=== PATIENT | male | born 1995 | race Caucasian/White ===

== ENCOUNTER 2017-05-11 01:53 | Emergency (ER) | payer BC ==
[~2017-05-11] VITALS: Ht 162.6 cm; Wt 70.3 kg
[~2017-05-11 01:53] MED LIST: AMBIEN10 MG PO; DOXEPIN HCL25 MG PO; GABAPENTIN100 MG PO; HYDROXYZINE HCL25 MG PO; LATUDA80 MG PO; MELATONIN3 MG PO; NORCO 10-325 T1 EACH PO; OLANZAPINE5 MG PO; OXYCONTIN10 MG PO; PRISTIQ ER50 MG PO; SAPHRIS10 MG SL; TOPIRAMATE100 MG PO; TRAZODONE HCL50 MG; ULTRAM 50MG50 MG PO; VALIUM10 MG PO; VYVANSE40 MG PO; XANAX0.25 MG PO
[2017-05-11 02:34] LABS: BILIRUBIN,URINE NEGATIVE (NEGATIVE); CLARITY,URINE CLEAR (CLEAR); COLOR,URINE YELLOW (YELLOW); KETONES,URINE NEGATIVE (NEGATIVE); LEUKOCYTE ESTERASE ,URINE NEGATIVE (NEGATIVE); NITRITE,URINE NEGATIVE (NEGATIVE); PROTEIN,URINE DIPSTICK NEGATIVE (NEGATIVE); URINE UROBILINOGEN 0.2 mg/dL (0.2 - 1)
[2017-05-11 02:42] LABS: BACTERIA,URINE RARE /HPF; EPITHELIAL CELLS,URINE RARE /LPF; RBC,URINE 0-5 /HPF (0-5)
[2017-05-11 02:46] VITALS: BP 116/72
--- NOTE | 2017-05-12 07:42 | Diagnostic Imaging Report ---
PROCEDURE:ABDOMEN ACUTE SERIES W/PA CXR COMPARISON:None. INDICATIONS:LOWER ABDOMINAL PAIN FINDINGS: CHEST: Normal cardiomediastinal silhouette. No focal consolidation or parenchymal mass. No pleural effusion or pneumothorax. BOWEL PATTERN: No air-fluid levels. No pneumoperitoneum. SOFT TISSUES: No abnormal calcifications. BONES: No acute displaced fracture. CONCLUSION: 1. No acute thoracic abnormality. 2. No evidence of bowel obstruction. Dictated by: Dante Colón M.D. on 05/12/2017 at 7:42 Electronically approved by: Dante Colón M.D. on 05/12/2017 at 7:42
== END 2017-05-11 02:51 | disposition home or self-care (01) ==
LOC: ER 01:56
DX: R10.31 Right lower quadrant pain (principal); R10.32 Left lower quadrant pain; K59.00 Constipation, unspecified; G89.29 Other chronic pain; F31.9 Bipolar disorder, unspecified
CPT/HCPCS: 74022; 81001; 99283

== ENCOUNTER 2017-06-21 15:25 | Emergency (ER) | payer BC ==
[~2017-06-21] VITALS: Ht 162.6 cm; Wt 70.3 kg
--- OUTSIDE RECORDS SUMMARY | 2017-06-21 15:28 | XMS REPORT ---
Author Author [facility] Address Unknown Phone Unavailable Care Team Providers Care Rubber Covering Machine Operator Name Role Phone MARIA EUGENIA FAJARDO Unavailable Unavailable Problems This patient has no known problems. Allergies, Adverse Reactions, Alerts This patient has no known allergies or adverse reactions. Medications This patient has no known medications. Results Test Description Test Time Test Comments Text Results Atomic Results Result Comments ABDOMEN ACUTE SERIES W/PA CXR [place] [address] Patient Name: RICKI FLEMING MR #: [id number] : 1995 Age/Sex: 22/M Req #: [id number] Adm Physician: Ordered by: MARIA EUGENIA FAJARDO MD Report #: [id number] Location: ER Room/Bed: ___ Procedure: [id number] DX/ABDOMEN ACUTE SERIES W/PA CXR Exam Date: Exam Time: 0210 REPORT STATUS: Signed PROCEDURE: ABDOMEN ACUTE SERIES W/PA CXR COMPARISON: None. INDICATIONS: LOWER ABDOMINAL PAIN FINDINGS: CHEST: Normal cardiomediastinal silhouette. No focal consolidation or parenchymal mass. No pleural effusion or pneumothorax. BOWEL PATTERN: No air-fluid levels. No pneumoperitoneum. SOFT TISSUES: No abnormal calcifications. BONES: No acute displaced fracture. CONCLUSION: 1. No acute thoracic abnormality. 2. No evidence of bowel obstruction. Dictated by: Faby Clemens M.D. on 05/12/2017 at 7:42 Electronically approved by: Faby Clemens M.D. on 05/12/2017 at 7:42 Dictated By: FABY CLEMENS MD 1 Transcribed By: BENY on 05/12/17741 COPY TO: MARIA EUGENIA FAJARDO MD
--- OUTSIDE RECORDS SUMMARY | 2017-06-21 15:28 | XMS REPORT ---
Author Author Admin, [facility] Address Unknown Phone Unavailable Allergies, Adverse Reactions, Alerts Allergy Name Reaction Description Start Date Severity Status Provider No Known Allergies Jarochomelecio Justinis TRANSPORTATION ATTENDANT Conditions or Problems Problem Name Problem Code Onset Date Status Entry Date Provider Comment Standard Description Annotate BMI 33.0-33.9 Active Michael RODRIGUEZ-C Body Mass Index 33.0-33.9, adult Obesity Active Michael RODRIGUEZ-C Obesity, unspecified Nicotine dependence, chewing tobacco, with other nicotine-induced disorders 292.89 Active Aravind Bhatti [employer] REPA[employer]ER Other specified drug-induced mental disorders Prediabetes 790.29 Active Aravind Bhatti [employer] REPAIRER Other abnormal glucose Bipolar disorder 296.7 Active Aravind Bhatti [employer] REPAIRER Bipolar I disorder, most recent episode (or current) unspecified Gender Dysphoria 309.89 Active Aravind Bhatti [employer] REPAIRER Other specified adjustment reactions Herniated lumbar disc 722.10 Active Aravind Guillenarberg [employer] REPAIRER Displacement of lumbar intervertebral disc without myelopathy Hormone imbalance 259.9 Active Aravind Bhatti [employer] REPAIRER Unspecified endocrine disorder Chewing difficulty ICD-783.3 Inactive Aravind STOVERP Chewing difficulty 783.3 Resolved Aravind STOVERP Feeding difficulties and mismanagement Medication List Medication Instructions Start Date Stop Date Generic Name NDC Status Provider Patient Instruction PROPRANOLOL HCL 10 MG ORAL TABLET 1 by mouth Every Day PROPRANOLOL HCL 31325923338 Active Michael Lars O'Donavan [employer] REPAIRER-C Active BIOTIN 1000 MCG ORAL TABLET 1 tab By Mouth Every Day BIOTIN 24829241234 Active Michael Sharif [employer]MENT PLANT REPAIRER-C Active DOXEPIN HCL CAPSULE DOXEPIN HCL CAPS 40999092692 Active Michael Sharif [employer]ANT REPAIRER-C Active GABAPENTIN CAPSULE GABAPENTIN CAPS 70435939711 Active Michael Sharif [employer] REPAIRER-C Active IBUPROFEN CAPSULE IBUPROFEN CAPS 23653660487 Active Michael Sharif [employer]MENT PLANT REPAIRER-C Active OLANZAPINE TABLET OLANZAPINE TABS 12336435613 Active Michael Sharif [employer]MENT PLANT REPAIRER-C Active PROPRANOLOL HCL TABLET PROPRANOLOL HCL TABS 39781670096 Active Michael Sharif [employer]MENT PLANT REPAIRER-C Active SERTRALINE HCL TABLET SERTRALINE HCL TABS 68175041478 Active Michael Sharif [employer]ANT REPAIRER-C Active BD SYRINGE/NEEDLE 25G X 5/8" 1 ML Inject 0.25mL testosterone SC weekly 12/10 SYRINGE/NEEDLE (DISP) 20180184793 Active Aravind Bhatti [employer] REPAIRER Active TESTOSTERONE CYPIONATE 200 MG/ML INTRAMUSCULAR SOLUTION 0.5ml (100mg) injected subcu every 7 days TESTOSTERONE CYPIONATE 12768903428 Active Michael Sharif [employer]ANT REPAIRER-C Active AMBIEN 10 MG ORAL TABLET 1 by mouth nightly at bedtime as needed for insomnia AMBIEN 10 MG ORAL TABLET 262713 ZOLPIDEM TARTRATE Inactive HYDROCODONE-ACETAMINOPHEN 10-300 MG ORAL TABLET HYDROCODONE-ACETAMINOPHEN 10-300 MG ORAL TABLET 842925 HYDROCODONE- ACETAMINOPHEN Inactive LATUDA 80 MG ORAL TABLET one daily LATUDA 80 MG ORAL TABLET LURASIDONE HCL Inactive OXYCONTIN 30 MG ORAL TABLET ER 12 HOUR ABUSE-DETERRENT OXYCONTIN 30 MG ORAL TABLET ER 12 HOUR ABUSE-DETERRENT OXYCODONE HCL Inactive PRISTIQ 50 MG ORAL TABLET EXTENDED RELEASE 24 HOUR PRISTIQ 50 MG ORAL TABLET EXTENDED RELEASE 24 HOUR DESVENLAFAXINE SUCCINATE Inactive VALIUM 10 MG ORAL TABLET Three Times a Day VALIUM 10 MG ORAL TABLET 540606 DIAZEPAM Inactive VYVANSE 40 MG ORAL CAPSULE Twice a Day VYVANSE 40 MG ORAL CAPSULE LISDEXAMFETAMINE DIMESYLATE Inactive AMBIEN 10 MG ORAL TABLET 1 by mouth nightly at bedtime as needed for insomnia ZOLPIDEM TARTRATE 57750816591 No Longer Active Michael Sharif [employer] REPAIRER-C Active HYDROCODONE-ACETAMINOPHEN 10-300 MG ORAL TABLET HYDROCODONE-ACETAMINOPHEN 39208287865 No Longer Active Aravind Bhatti [facility] Active LATUDA 80 MG ORAL TABLET one daily LURASIDONE HCL 92331259229 No Longer Active Aravind STOVERP Active OXYCONTIN 30 MG ORAL TABLET ER 12 HOUR ABUSE-DETERRENT OXYCODONE HCL 89936207720 No Longer Active Aravind Bhatti [facility] Active PRISTIQ 50 MG ORAL TABLET EXTENDED RELEASE 24 HOUR DESVENLAFAXINE SUCCINATE 97948233737 No Longer Active Aravind STOVERP Active VALIUM 10 MG ORAL TABLET Three Times a Day DIAZEPAM 50954542322 No Longer Active Michael STOVERP-C Active VYVANSE 40 MG ORAL CAPSULE Twice a Day LISDEXAMFETAMINE DIMESYLATE 91176293482 No Longer Active Michael STOVERP-C Active Advance Directives Directive Description Start Date DR. CHRISTIANO SAENZ--PSYCHIATRIST SINCE AGE 13 NEIL FLORES MD IS PAIN MANAGEMENT Vital Signs Date Name Value Unit Range Description blood pressure, diastolic 80 mm[Hg] BP castelan blood pressure, systolic 147 mm[Hg] BP sys height E&M 64 [in_us] Bdy height pulse rate E&M 111 /min Heart rate temperature E&M 96.8 [degF] Body temperature weight E&M 200.38 [lb_av] Weight Measured blood pressure, diastolic 86 mm[Hg] BP castelan blood pressure, systolic 142 mm[Hg] BP sys height E&M 64 [in_us] Bdy height pulse rate E&M 75 /min Heart rate temperature E&M 97.6 [degF] Body temperature weight E&M 197.38 [lb_av] Weight Measured blood pressure, diastolic 99 mm[Hg] BP castelan blood pressure, systolic 151 mm[Hg] BP sys height E&M 64 [in_us] Bdy height pulse rate E&M 112 /min Heart rate temperature E&M 98.6 [degF] Body temperature weight E&M 195.50 [lb_av] Weight Measured Diagnostic Results Date Name Value Unit Range Description Lab Report: CBC With Differential/Platelet, Comp. Metabolic Panel (14), ... - Serology hepatitis C antibody, serum <0.1 0.0-0.9 Lab Report: CBC With Differential/Platelet, Comp. Metabolic Panel (14), ... - Hematology lymphocyte count, blood, automated 3.8 X10E3/UL 10*3/mm3 0.7- 3.1 Lab Report: Comp. Metabolic Panel (14), CBC, Platelet, No Differential, ... - Chemistry urea nitrogen, blood 8 mg/dL 6-20 creatinine, serum 0.87 mg/dL 0.57-1.00 chloride, serum 100 mmol/L 96-106 Lab Report: Comp. Metabolic Panel (14), CBC, Platelet, No Differential, ... - Hematology mean corpuscular volume, RBC 85 fL 79-97 Lab Report: Comp. Metabolic Panel (14), CBC, Platelet, No Differential, ... - Chemistry triglyceride, serum, fasting 131 mg/dL 0-149 Lab Report: Comp. Metabolic Panel (14), CBC, Platelet, No Differential, ... - Hematology erythrocyte (RBC) count 4.94 X10E6/UL 10*6/mm3 3.77-5.28 Lab Report: Comp. Metabolic Panel (14), CBC, Platelet, No Differential, ... - Chemistry Estimated Glomerular Filtration Rate (calc) 95 mL/min/1.73m2 > 59 Lab Report: Comp. Metabolic Panel (14), CBC, Platelet, No Differential, ... - Hematology platelet count 349 X10E3/UL 10*3/mm3 223-408 0447/12/18 red blood cell distribution width 13.8 % 12.3-15.4 Lab Report: Comp. Metabolic Panel (14), CBC, Platelet, No Differential, ... - Chemistry protein, total, serum 7.2 g/dL 6.0-8.5 HDL cholesterol, serum 35 mg/dL >39 albumin/globulin ratio, serum 1.6 1.2-2.2 Lab Report: CBC With Differential/Platelet, Comp. Metabolic Panel (14), ... - Hematology eosinophils as percent of blood leukocytes 1 % Lab Report: CBC With Differential/Platelet, Comp. Metabolic Panel (14), ... - Chemistry Absolute Neutrophils 3.3 X10E3/UL 10*3/uL 1.4-7.0 Lab Report: CBC With Differential/Platelet, Comp. Metabolic Panel (14), ... - Hematology basophil count, absolute 0.0 x10E3/uL 0.0-0.2 Lab Report: CBC With Differential/Platelet, Comp. Metabolic Panel (14), ... - Chemistry hepatitis B surface antigen Negative Negative Lab Report: Comp. Metabolic Panel (14), CBC, Platelet, No Differential, ... - Chemistry alanine aminotransferase (SGPT), serum 16 U/L 0-32 LDL cholesterol, serum 97 mg/dL 0-99 Lab Report: CBC With Differential/Platelet, Comp. Metabolic Panel (14), ... - Hematology monocytes as percent of blood leukocytes 8 % Lab Report: Comp. Metabolic Panel (14), CBC, Platelet, No Differential, ... - Chemistry cholesterol, serum 158 mg/dL 100-199 Lab Report: Comp. Metabolic Panel (14), CBC, Platelet, No Differential, ... - Hematology mean corpuscular hemoglobin concentration, RBC 33.8 G/DL % 31.5- 35.7 hemoglobin, blood 14.2 g/dL 11.1-15.9 leukocyte count, blood 10.8 X10E3/UL 10*3/mm3 3.4-10.8 hematocrit, blood 42.0 % 34.0-46.6 Lab Report: Comp. Metabolic Panel (14), CBC, Platelet, No Differential, ... - Chemistry globulin, serum 2.8 1.5-4.5 Lab Report: CBC With Differential/Platelet, Comp. Metabolic Panel (14), ... - Chemistry vitamin D 25-hydroxy, serum 28.5 ng/mL 30.0-100.0 Lab Report: Comp. Metabolic Panel (14), CBC, Platelet, No Differential, ... - Chemistry testosterone, serum, free 22.9 pg/mL 0.0-4.2 Lab Report: CBC With Differential/Platelet, Comp. Metabolic Panel (14), ... - Chemistry thyroid stimulating hormone, serum 1.040 u[iU]/mL 0.450-4.500 Lab Report: Comp. Metabolic Panel (14), CBC, Platelet, No Differential, ... - Chemistry albumin, serum 4.4 g/dL 3.5-5.5 very low density lipoproteins 26 mg/dL 5-40 Lab Report: CBC With Differential/Platelet, Comp. Metabolic Panel (14), ... - Hematology basophils as percent of blood leukocytes 0 % Lab Report: Comp. Metabolic Panel (14), CBC, Platelet, No Differential, ... - Chemistry calcium, serum 9.6 mg/dL 8.7-10.2 Lab Report: CBC With Differential/Platelet, Comp. Metabolic Panel (14), ... - Hematology monocyte count, blood, automated 0.6 X10E3/UL 10*3/uL 0.1-0.9 Lab Report: Comp. Metabolic Panel (14), CBC, Platelet, No Differential, ... - Chemistry urea nitrogen/creatinine ratio, serum 9 9-23 Lab Report: CBC With Differential/Platelet, Comp. Metabolic Panel (14), ... - Chemistry immature granulocytes, percentage of total cells, blood 0 % Lab Report: Comp. Metabolic Panel (14), CBC, Platelet, No Differential, ... - Genetics/fertility eGFR if 109 mL/min/1.73m2 >59 Lab Report: CBC With Differential/Platelet, Comp. Metabolic Panel (14), ... - Hematology lymphocytes as percent of blood leukocytes 49 % Lab Report: Comp. Metabolic Panel (14), CBC, Platelet, No Differential, ... - Chemistry carbon dioxide, venous blood 26 mmol/L 18-29 Lab Report: CBC With Differential/Platelet, Comp. Metabolic Panel (14), ... - Serology rapid plasma reagin antibody, serum Non Reactive Non Reactive Lab Report: Comp. Metabolic Panel (14), CBC, Platelet, No Differential, ... - Chemistry sodium, serum 140 mmol/L 134-144 Lab Report: CBC With Differential/Platelet, Comp. Metabolic Panel (14), ... - Chemistry hemoglobin A1C, blood, as % of total hemoglobin 5.8 % 4.8-5.6 Lab Report: Comp. Metabolic Panel (14), CBC, Platelet, No Differential, ... - Chemistry alkaline phosphatase, serum 99 U/L 39-117 testosterone, total 615 ng/dL 8-48 Lab Report: CBC With Differential/Platelet, Comp. Metabolic Panel (14), ... - Hematology Eosinophil Absolute Count 0.1 X10E3/UL 10*3/uL 0.0-0.4 Lab Report: Comp. Metabolic Panel (14), CBC, Platelet, No Differential, ... - Hematology mean corpuscular hemoglobin, RBC 28.7 pg 26.6-33.0 Lab Report: Comp. Metabolic Panel (14), CBC, Platelet, No Differential, ... - Chemistry bilirubin, serum, total <0.2 mg/dL mg/dL 0.0-1.2 Lab Report: CBC With Differential/Platelet, Comp. Metabolic Panel (14), ... - Hematology neutrophils as percent of blood leukocytes 42 % Lab Report: Comp. Metabolic Panel (14), CBC, Platelet, No Differential, ... - Chemistry blood glucose, random 92 mg/dL 65-99 potassium, serum 4.7 mmol/L 3.5-5.2 aspartate aminotransferase (SGOT), serum 17 U/L 0-40 Encounters Date Encounter Provider Code Facility 17:12:11 DEMURRAGE AGENT Est Patient Exp Problem - 16771 Michael Sousa O'Donavan WATER TREATMENT PLANT REPAIRER-C CPT-49531 [facility] 14:21:59 DEMURRAGE AGENT Est Patient Exp Problem - 81183 Mcihael Lars O'Donavan WATER TREATMENT PLANT REPAIRER-C CPT-67901 [facility] 15:31:56 DEMURRAGE AGENT New Patient Detailed - 78259 Michael Sousa O'Donavan WATER TREATMENT PLANT REPAIRER- C CPT-06524 [facility] 12:02:02 DEMURRAGE AGENT Est Patient Problem Focus - 23141 Aravind Guillenarberg WATER TREATMENT PLANT REPAIRER CPT-48644 [facility] 17:04:19 CDT Est Patient Problem Focus - 01599 Aravind Guillenarberg WATER TREATMENT PLANT REPAIRER CPT-80109 [facility] 16:54:12 CDT New Patient Comprehensive - 61419 Aravind Guillenarberg WATER TREATMENT PLANT REPAIRER CPT-00352 [facility] Adult [facility] Procedures Code Procedure Name Date Entry Date Standard Description CPT-66759 Handling of specimen for transfer 16:54:15 CDT CPT-27605 Venipuncture 16:54:15 CDT
--- OUTSIDE RECORDS SUMMARY | 2017-06-21 15:28 | XMS REPORT | Continuity of Care Document ---
Author Author [facility] Organization [facility] Address [address] [place] [address] Phone Unavailable Care Team Providers Care Town Justice Name Role Phone TERESA RAMOS DO PCP Insurance Providers Guarantor Rojelio Fleming Address [address] [place] [address] [place] [address] Payer [facility] Ppo Policy Number [id number] Subscriber's Name Rojelio Fleming Relationship 33 Father Group Number [id number] Group Name [employer] Effective Date 15 Advance Directives Directive Response Recorded Date/Time Does the patient have an advance directive? No 06/02/09 10:07pm If yes, is advance directive on file with [facility]? No 06/02/09 10:07pm If not on file with [facility] will patient provide a copy? Yes 09/12/15 8:27am Do you have a Directive to Physician? No 05/11/17 2:19am Do you have a Medical Power of Tank Cleaning Supervisor? No 05/11/17 2:19am Do you have an out of hospital Do Not Resuscitate Order? No 05/11/17 2:19am Do you have any special needs we should be aware of? No 05/11/17 2:19am Do you have a support person here with you today? Yes 05/11/17 2:19am Did patient receive Notice of Privacy Practices? Yes 05/11/17 2:19am Did patient receive patient rights and responsibilities? Yes 05/11/17 2:19am Problems Medical Problem Onset Date Status Anticholinergic drug overdose 08/08/2014 Acute Chronic back pain Unknown Acute Diphenhydramine overdose 08/08/2014 Acute Medications Current Home Medications Medication Dose Units Route Directions Days Qty Instructions Start Date Desvenlafaxine Succinate (Pristiq Er) 50 Mg Tab.er.24h 50 Mg Oral Daily 30 Tab Doxepin Hcl 25 Mg Capsule 150 Mg Oral Bedtime 30 Cap Gabapentin 100 Mg Capsule 100 Mg Oral Twice A Day Hydroxyzine Hcl 25 Mg Tablet 75 Mg Oral Twice A Day 30 Tab Melatonin 3 Mg Tablet 5 Mg Oral Bedtime Olanzapine 5 Mg Tablet 15 Mg Oral Daily 30 Tab Topiramate 100 Mg Tablet 150 Mg Oral Twice A Day 30 Tab Past Home Medications Medication Directions Ordered Status Alprazolam (Xanax) 0.25 Mg Tablet, Unknown Dose Oral Daily Discontinued Asenapine Maleate (Saphris) 10 Mg Tab.subl, Unknown Dose Sublingual Daily Discontinued Diazepam (Valium) 10 Mg Tablet, 10 Mg Oral Three Times A Day Discontinued Hydrocodone Bit/Acetaminophen ([place] 10-325 Tablet) 1 Each Tablet, 1 Tab Oral Three Times A Day Discontinued Lisdexamfetamine Dimesylate (Vyvanse) 40 Mg Capsule, 80 Mg Oral Daily Discontinued Lurasidone Hcl (Latuda) 80 Mg Tablet, 80 Mg Oral Daily Discontinued Oxycodone Hcl (Oxycontin) 10 Mg Tab.er.12h, 30 Mg Oral Twice A Day Discontinued Tramadol Hcl (Ultram 50MG*) 50 Mg Tab, 50 Mg Oral As Needed as needed for Pain Discontinued Trazodone Hcl 50 Mg Tablet, Unknown Dose Route Daily Discontinued Zolpidem Tartrate (Ambien) 10 Mg Tablet, 10 Mg Oral Bedtime Discontinued Social History Smoking Status Start Date Stop Date Current some day smoker Hospital Discharge Instructions No hospital discharge instruction information available. Plan of Care Discharge Date 05/11/17 2:51am Disposition HOME, SELF-CARE Condition at Discharge Stable Instructions/Education Provided Constipation - Adult Forms Provided Work/School Excuse Prescriptions See Medication Section Additional Instructions/Education DRINK PLENTY OF FLUIDS Functional Status No functional status information available. Allergies, Adverse Reactions, Alerts No known allergies. Immunizations No immunization information available. Vital Signs Acute Vital Signs Vital Response Date/Time Temperature (Fahrenheit) 97.8 degrees F (97.6 - 99.5) 05/11/2017 2:46am Pulse Pulse Rate (adult) 77 bpm (60 - 90) 05/11/2017 2:46am Respiratory Rate 18 bpm (12 - 24) 05/11/2017 2:46am Blood Pressure 116/72 mm Hg 05/11/2017 2:46am Height 5 ft 4 in 05/11/2017 1:57am Weight 155 lb 05/11/2017 1:57am Body Mass Index 26.6 kg/m^2 05/11/2017 1:57am Results Laboratory Results Test Name Result Units Flags Reference Collection Date/Time Result Date/ Time Comments Urine Color YELLOW YELLOW 05/11/2017 2:30am 05/11/2017 2:40am Urine Clarity CLEAR CLEAR 05/11/2017 2:30am 05/11/2017 2:40am Urine Specific [place] 1.020 1.010-1.025 05/11/2017 2:30am 2017 2:40am Urine pH 5 5 - 7 05/11/2017 2:30am 05/11/2017 2:40am Urine Leukocyte Esterase NEGATIVE NEGATIVE 05/11/2017 2:30am 2017 2:40am Urine Nitrite NEGATIVE NEGATIVE 05/11/2017 2:30am 05/11/2017 2:40am Urine Protein NEGATIVE NEGATIVE 05/11/2017 2:30am 05/11/2017 2:40am Urine Glucose (UA) NEGATIVE NEGATIVE 05/11/2017 2:30am 05/11/2017 2: 40am Urine Ketones NEGATIVE NEGATIVE 05/11/2017 2:30am 05/11/2017 2:40am Urine Urobilinogen 0.2 mg/dL 0.2 - 1 05/11/2017 2:30am 05/11/2017 2: 40am Urine Bilirubin NEGATIVE NEGATIVE 05/11/2017 2:30am 05/11/2017 2: 40am Urine Blood NEGATIVE NEGATIVE 05/11/2017 2:30am 05/11/2017 2:40am Urine WBC 11-20 /HPF H 0-5 05/11/2017 2:30am 05/11/2017 2:43am Urine RBC 0-5 /HPF 0-5 05/11/2017 2:30am 05/11/2017 2:43am Urine Bacteria RARE /HPF NONE 05/11/2017 2:30am 05/11/2017 2:43am Urine Epithelial Cells RARE /LPF NONE 05/11/2017 2:30am 05/11/2017 2: 43am Procedures No procedure information available. Encounters Encounter Location Arrival/Admit Date Discharge/Depart Date Attending Provider Departed Emergency Room [facility] 05/11/17 1:56am 2:51am MARIA EUGENIA FAJARDO MD
[2017-06-21 17:20] LABS: BASOPHILS % 0.4 % (0.0-1.0); EOSINOPHILS # (AUTO) 0.2 (0.0-0.4); EOSINOPHILS % 1.4 % (0.0-6.0); HEMATOCRIT 50.9 % (34.2-44.1); HEMOGLOBIN 16.9 g/dL (12.0-16.0); LYMPHOCYTES # (AUTO) 2.7 (1.0-3.2); LYMPHOCYTES % 24.8 % (18.0-39.1); MEAN CORPUSCULAR HEMOGLOBIN 27.5 pg (28-32); MEAN CORPUSCULAR HGB CONC 33.2 g/dL (31-35); MEAN CORPUSCULAR VOLUME 82.9 fL (81-99); MONOCYTES # (AUTO) 0.7 (0.2-0.8); MONOCYTES % 6.2 % (4.4-11.3); NEUTROPHILS # (AUTO) 7.2 (2.1-6.9); NEUTROPHILS % 67.1 % (38.7-80.0); PLATELET COUNT 431 x10e3/uL (140-360); RED BLOOD COUNT 6.14 x10e6/uL (3.6-5.1); RED CELL DISTRIBUTION WIDTH 13.8 % (11.7-14.4)
[2017-06-21] MEDS ORDERED: SODIUM CHLORIDE 0.9% 1000ML 2,000 ML IV ONE (17:30)
[2017-06-21] MEDS ORDERED: SODIUM CHLORIDE 0.9% 1000ML 1,000 ML IV SCH (17:30)
[2017-06-21 17:35] LABS: ALANINE AMINOTRANSFERASE 15 IU/L (0-55); ALBUMIN 4.4 g/dL (3.5-5.0); ALBUMIN/GLOBULIN RATIO 1.1 (0.8-2.0); ALKALINE PHOSPHATASE 90 IU/L (40-150); ANION GAP 11.9 mmol/L (8-16); BLOOD UREA NITROGEN 5 mg/dL (7-26); BUN/CREATININE RATIO 6 (6-25); CARBON DIOXIDE 22 mmol/L (22-29); CHLORIDE 107 mmol/L (98-107); EST GLOMERULAR FILTRATION RATE > 60 ML/MIN (60-); GLUCOSE 105 mg/dL (74-118); POTASSIUM 3.9 mmol/L (3.5-5.1); SODIUM 137 mmol/L (136-145)
[2017-06-21] MEDS ORDERED: LITHIUM CARBON600 MG PO (18:33)
[2017-06-21 19:09] VITALS: BP 116/82
== END 2017-06-21 19:20 | disposition home or self-care (01) ==
LOC: EDSEX 15:25 → ER 15:25
DX: T43.591A Poisoning by other antipsychotics and neuroleptics, accidental (unintentional), initial encounter (principal); Y92.019 Unspecified place in single-family (private) house as the place of occurrence of the external cause
CPT/HCPCS: 36415; 80053; 80178; 85025; 99283; J7030